=== PATIENT | male | born 1980 ===

== ENCOUNTER 2017-11-16 09:41 | Inpatient (IN) | payer OTHER ==
[2017-11-10 13:42] VITALS: Ht 172.7 cm; Wt 75.0 kg
[2017-11-16] VITALS (8 sets, daily range): BP systolic 124–146; BP diastolic 77–97; PULSE 84–106; TEMP 36.4–37.2; O2SAT 96–98
[~2017-11-16] VITALS: Ht 172.7 cm; Wt 75.0 kg
[~2017-11-16 09:41] MED LIST: CZR50 PO; LACTATED RINGER'S 1000ML 1,000 ML IV SCH
--- NOTE | 2017-11-16 12:02 | History & Physical Bridge Note ---
H&P Re-Evaluation Bridge Note: I have examined the patient, reviewed the History & Physical and in the interval since the performance of the History & Physical I have noted the following changes of clinical significance: No changes noted
[2017-11-16] MEDS ORDERED: BUPIVACAINE LIPOSOME 1/3% 266 MG/20 ML VIAL ONE (12:30)
[2017-11-16] MEDS ORDERED: SODIUM CHLORIDE 0.9% PF 50 ML VIAL ONE (12:30)
[2017-11-16] MEDS ORDERED: BUPIVACAINE 0.25% 30 ML VIAL ONE (12:30)
[2017-11-16] MEDS ORDERED: LIDOCAINE HCL 2% 2 ML VIAL (20MG/ML) ONE (12:47)
[2017-11-16] MEDS ORDERED: PROPOFOL IV EMULSION 10 MG/ML 20 ML VIAL ONE (12:47)
[2017-11-16] MEDS ORDERED: MIDAZOLAM HCL 1 MG/ML 2ML VIAL ONE ×2 (12:47)
[2017-11-16] MEDS ORDERED: FENTANYL CITRATE INJ 50 MCG/1 ML 2 ML VIAL ONE (12:47)
[2017-11-16] MEDS ORDERED: ONDANSETRON INJ 2 MG/ML 2 ML VIAL ONE (12:47)
[2017-11-16] MEDS ORDERED: DEXAMETHASONE SOD INJ 4 MG/ML VIAL ONE (12:47)
[2017-11-16] MEDS ORDERED: NEOSTIGMINE METHYLSULFATE 5 MG/5 ML SYR ONE (12:47)
[2017-11-16] MEDS ORDERED: GLYCOPYRROLATE INJ 0.2 MG/ML VIAL ONE (12:47)
[2017-11-16] MEDS ORDERED: DexMEDEtomidine HCL IV 100 MCG/ML VIAL IV ONE (13:05)
[2017-11-16 13:12] LABS: BASO % 0.3 %; BASO ABS # 0.02 K/uL (0-0.2); EOS % 0.7 %; EOS ABS # 0.04 K/uL (0-0.5); HEMATOCRIT 48.6 % (42-52); HEMOGLOBIN 17.2 g/dL (14.0-18.0); IG# 0.01 K/uL (0.00-0.02); LYMPH % 21.3 %; LYMPH ABS # 1.27 K/uL (1.2-3.4); MEAN CELL VOLUME 85.7 fL (80-100); MEAN CORPUSCULAR HEMOGLOBIN 30.3 pg (25-34); MEAN CORPUSCULAR HGB CONC 35.4 g/dl (32-36); MEAN PLATELET VOLUME 10.4 fL (7.4-10.4); MONO % 13.7 %; MONO ABS # 0.82 K/uL (0.11-0.59); NEUT % 63.8 %; NEUT ABS # 3.81 K/uL (1.4-6.5); PLATELET COUNT 196 K/uL (130-400); RED CELL DISTRIBUTION WIDTH CV 13.6 % (11.5-14.5); RED CELL DISTRIBUTION WIDTH SD 41.9 fL (36.4-46.3); WHITE BLOOD COUNT 5.97 K/uL (4.8-10.8)
[2017-11-16] MEDS ORDERED: ONDANSETRON INJ 2 MG/ML 2 ML VIAL IV PRN ×2 (13:15→15:15)
[2017-11-16] MEDS ORDERED: PROMETHAZINE HCL INJ 6.25 MG in SODIUM CHLORIDE 0.9% 50ML 50 ML IV PRN (13:15)
[2017-11-16] MEDS ORDERED: EpHEDrine SULFATE INJ 50 MG/ML AMP IV PRN (13:15)
[2017-11-16] MEDS ORDERED: ATROPINE SULFATE 0.1 MG/ML 5ML SYR IV PRN (13:15)
[2017-11-16] MEDS ORDERED: FENTANYL CITRATE INJ 50 MCG/1 ML 2 ML VIAL IV PRN (13:15)
[2017-11-16 13:34] LABS: CREATININE 1.14 mg/dl (0.60-1.40); POTASSIUM 3.8 mmol/L (3.5-5.1)
[2017-11-16] MEDS ORDERED: ESMOLOL HCL 10 MG/ML 10 ML VIAL ONE (14:32)
--- NOTE | 2017-11-16 15:02 | [facility] Post Operative Brief Note ---
Immediate Operative Summary Operative Date Nov 16, 2017. Pre-Operative Diagnosis Periaortic mass / paramediastinal mass Post-Operative Diagnosis Same Procedure(s) Performed Robotic Assisted Left Thoracoscopy with Excision of Paramediastinal Mass Surgeon Dr Marcial Respiratory Therapy Instructor Surgeon(s) Jassi Ureña PA-C Estimated Blood Loss 10ml Findings Consistent with Post-Op Diagnosis Specimens Frozen section #1 Left paramediastinal mass sent out at 1451 Anesthesia Type General
[2017-11-16] MEDS ORDERED: MoRPHine SULFATE 2 MG/ML CARP IV PRN (15:15)
[2017-11-16] MEDS ORDERED: OXYCODONE HCL IR 5 MG TAB (IMMEDIATE RELEASE) PO PRN (15:15)
--- NOTE | 2017-11-16 16:17 | DIAGNOSTIC IMAGING REPORT ---
CHEST ONE VIEW PORTABLE HISTORY: 37 years-old Male med. mass excision status post excision of a mediastinal mass. COMPARISON: Chest 10/18/2017 TECHNIQUE: Portable AP view of the chest FINDINGS: Subcutaneous emphysema about the left lateral chest wall and left neck. Chest tube projects over the left lung apex. Trace left apical pneumothorax is noted with pleural separation of approximately 2 mm. No pleural effusion, focal airspace consolidation or overt pulmonary edema. Heart and mediastinal and hilar contours appear to be within normal limits. The bones are grossly intact. IMPRESSION: 1. Left-sided chest tube projects over the left lung apex with trace left apical pneumothorax. 2. Subcutaneous emphysema about the left neck and left lateral chest wall. The above report was generated using voice recognition software. It may contain grammatical, syntax or spelling errors. Electronically signed by: Dwaine Maria M.D. 11/16/2017 4:15 PM Dictated Date/Time: 11/16/2017 4:13 PM
--- NOTE | 2017-11-16 16:32 | Anesthesiology Progress Note ---
Anesthesia Post Op Note Date & Time Nov 16, 2017 at 16:32 Vital Signs Pain Intensity: 0 Vital Signs Past 12 Hours Date Time Temp Pulse Resp B/P (MAP) Pulse Ox O2 Delivery O2 Flow Rate FiO2 11/16/17 16:00 36.7 74 20 143/87 (91) 100 Nasal Cannula 2 11/16/17 15:57 71 14 100 11/16/17 15:57 71 14 11/16/17 15:56 137/90 11/16/17 15:52 75 21 11/16/17 15:52 76 21 100 11/16/17 15:51 138/92 11/16/17 15:48 76 24 11/16/17 15:48 76 24 100 11/16/17 15:46 134/89 11/16/17 15:43 79 15 11/16/17 15:43 79 15 100 11/16/17 15:41 130/92 11/16/17 15:38 75 21 11/16/17 15:38 75 21 100 11/16/17 15:36 134/88 11/16/17 15:34 134/89 11/16/17 15:33 36.2 76 20 134/89 (101) 100 Oxymask 10 11/16/17 15:33 85 100 11/16/17 15:33 85 Notes Mental Status: alert / awake / arousable, participated in evaluation Pt Amnestic to Procedure: Yes Nausea / Vomiting: adequately controlled Pain: adequately controlled Airway Patency, RR, SpO2: stable & adequate BP & HR: stable & adequate Hydration State: stable & adequate Anesthetic Complications: no major complications apparent
--- NOTE | 2017-11-16 16:40 | Progress Note ---
Progress Note Date of Service Nov 16, 2017. Progress Note AIRWAY MANAGEMENT NOTE" CT scan was concerning for airway collapse and mass at the base of tongue. There was also a mediastinal mass, that did not appear to be compressing the trachea, but still left concern that airway compromise could result from a standard anesthetic induction. Decision was made to perform awake fiberoptic intubation. The patient was prepared in the holding area that excellent topical anesthesia of the oropharynx. AFOI was performed easily under light sedation the OR and a 7.5ETT was placed. Glottic opening was noted to have R vocal cord paralysis and deviation of the glottis to the R. He was also noted to be quite anterior with his glottic opening. There was no obvious mass in the posterior oropharynx. After confirmation of ETCO2 and administration of sevoflurane to induce anesthetic, a tube exchanger was placed through the 7.5ETT. We attempted to place a 37F BARBIE over the exchange catheter but were unable to pass the arytenoids under direct laryngoscopy. After failure of this exchange, the 7.5ETT was placed back over the exchange catheter and confirmed in the trachea. After speaking with Dr Marcial, he felt that the procedure could be adequately performed under single leumen tube, and so this tube was secured and the case continued as planned.
[2017-11-16] MEDS ORDERED: METOCLOPRAMIDE HCL INJ 5 MG/ML 2 ML VIAL IV. STA (18:04)
[2017-11-16] MEDS: ACETAMINOPHEN IV 1,000 MG in EMPTY BAG 0 ML IV SCH (19:30)
[2017-11-16] MEDS: D5W AND 1/2NSS 1,000 ML IV SCH (19:31)
[2017-11-16] MEDS: KETOROLAC TROMETHAMINE 15 MG/ML VIAL IV. SCH (19:32)
--- NOTE | 2017-11-16 20:52 | OPERATIVE REPORT ---
DATE OF OPERATION: 11/16/2017 PREOPERATIVE DIAGNOSES: 1. Mass, left paramediastinal area. 2. Left vocal cord paralysis of chronic duration. 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 PROCEDURE: Robot-assisted left thoracoscopy with excision of paramediastinal schwannoma. SURGEON: Denis Marcial MD GUEST REQUEST RUNNER: GILA Ariza (Mr. Niranjan was present for the entire case and was at the patient's bedside while I was at the console). ANESTHESIA: General anesthesia with a single lumen intubation. INDICATIONS OF PROCEDURE: Randy Curtis is a 37-year-old male who was incarcerated and who was found to have vocal cord paralysis. He underwent a workup, and a CT scan was obtained, and it was quite concerning because it appeared that he had not only a mass in his left upper paramediastinal area between his subclavian and carotid arteries but also he had a mass in his liver, and also, there was a questionable subglottic abnormality. He underwent a workup by Dr. Marie who referred him to me. The mass in the dome of the diaphragm is probably a hemangioma, and I reviewed this with the radiologist. In addition, the patient did have a left paralyzed vocal cord; however, after reviewing this, I felt we were probably dealing with a schwannoma. After a long discussion, we elected to proceed with excision. DESCRIPTION OF PROCEDURE: On 11/16/2017, the patient was brought to the operating room and underwent an uncomplicated robot-assisted thoracoscopic excision of this mass. We dissected this out very nicely. It was definitely arising and in fact was incorporated into the vagus nerve. There was no way to dissect this out. I left the capsule intact, although I was able to dissect it out precisely using the robot. I divided the vagus nerve fairly far down below the arch and then also divided it fairly high up. I pulled it down and cut and then retracted superiorly, then I cut it proximally and inferiorly, and I cut it distally. The mass was handed off the field in an Endobag. He tolerated it well. Patient was brought to the operating room, placed in supine position. General anesthesia induced. Endotracheal intubation was performed. Some difficulty intubating him as he was quite anterior. There was also a question about a subglottic abnormality. Dr. Flores performed a fiberoptic awake intubation; however, could do to hold anterior, we elected to proceed with a single lumen tube. The patient was placed in right lateral decubitus position. Left chest prepped and draped in the usual sterile fashion. After appropriate timeout had been called and antibiotics given, I made 4 separate incisions. I made a 12 mm incision right about the axillary line seventh interspace and placed the trocar. The camera was then placed. Carbon dioxide was infused. We had excellent visualization. An 8 mm tube was placed in seventh interspace more posteriorly and another 8 mm tube placed more anteriorly. I also placed a 12 mm tube and assistance port at about the tenth interspace about the midaxillary line. We were then able to see the mass. Grasping it with a grasper, I used a bipolar [place] dissector and I was able to separate this quite easily. We off the subclavian artery and then we identified the left carotid artery. We then dissected out and this came out quite nicely, it was an encapsulated; however, it was arising directly from the nerve. The vocal cords were already paralyzed, and it had been documented to be paralyzed for at least 6 months. I went ahead and divided this. We pulled it down, cut it, and let it retract back up into the thoracic inlet. I also placed it distally, cut it, and allowed it to retract distally inferior to the arch going down along the paraesophageal area. This came out quite nicely. We were able to remove the entire encapsulated mass. We had really got into no bleeding. We used an Endobag, collected this mass, and delivered it through the patient assistant's port. At the beginning of the case, we had anesthetized each of the 4 port sites with Exparel. We mixed 266 mg with 30 mL of 0.25% Marcaine and 250 mL normal saline, injected each of the ports and then did an intercostal block from the 2nd to the 11th rib. We really got into no bleeding with this case. A 24-Wallisian chest tube was placed through the patient assistant's port and directed toward the apex, sutured in place with heavy silk suture. The camera port was closed with a 0 Vicryl to close the muscle layers. 4-0 Monocryl was used in running subcuticular fashion to approximate the wound edges of all. He tolerated it very nicely and was extubated in the room. The frozen section was reviewed and this was a schwannoma and the capsule was intact. I attest to the content of the Intraoperative Record and any orders documented therein. Any exception s are noted below.
[2017-11-16] MEDS: DOCUSATE SODIUM 100 MG CAP PO SCH (21:00)
[2017-11-16] MEDS: METOCLOPRAMIDE HCL INJ 5 MG/ML 2 ML VIAL IV. SCH (23:42)
[2017-11-17 00:34] VITALS: BP 123/83; PULSE 107; TEMP 36.8; O2SAT 98
[2017-11-17 02:32] VITALS: BP 132/83; PULSE 101; TEMP 37; O2SAT 98
[2017-11-17 04:30] VITALS: BP 145/82; PULSE 98; TEMP 37; O2SAT 98
[2017-11-17] MEDS: ACETAMINOPHEN IV 1,000 MG in EMPTY BAG 0 ML IV SCH (04:34)
[2017-11-17] MEDS: KETOROLAC TROMETHAMINE 15 MG/ML VIAL IV. SCH (04:34)
[2017-11-17] MEDS: D5W AND 1/2NSS 1,000 ML IV SCH (04:38)
[2017-11-17] MEDS ORDERED: TYLOTC325 PO (08:12)
[2017-11-17] MEDS ORDERED: CLC100 PO (08:12)
--- NOTE | 2017-11-17 08:16 | Discharge Instructions ---
Discharge Instructions Date of Service Nov 17, 2017. Admission Reason for Admission: Left Paramediastinal Mass, Liver Mass Discharge Discharge Diagnosis / Problem: Schwannoma Discharge Goals Goal(s): Learn about illness Activity Recommendations Activity Limitations: as noted below Lifting Limitations: none Shower/Bathe: may shower/bathe in 3 days 1. Dressing may be removed on November 20, 2017 and patient may shower thereafter. No tub baths. 2. Patient should not fly in airplane until cleared to do so by Dr. Marcial. . Instructions / Follow-Up Instructions / Follow-Up 1. Patient may be placed in general population if cleared by [facility] medical staff. 2. Office appointment with Dr. Marcial in 1 month. Office will call to set up time and date. Patient should go to hospital 1 hour before scheduled appointment to have a chest x-ray taken. Current Hospital Diet Patient's current hospital diet: Regular Diet Discharge Diet Recommended Diet: Regular Diet Procedures Procedures Performed: Robotic Assisted Left Thoracoscopy with Excision of Paramediastinal Mass Pending Studies Studies pending at discharge: no Medical Emergencies . Who to Call and When: Medical Emergencies: If at any time you feel your situation is an emergency, please call 911 immediately. . Non-Emergent Contact Non-Emergency issues call your: Surgeon Call Non-Emergent contact if: you have a fever, your pain is not controlled, wound has increased drainage . "Provider Documentation" section prepared by Vineet Ureña. .
[2017-11-17 08:25] VITALS: BP 144/92; PULSE 99; TEMP 36.8; O2SAT 97
[2017-11-17] MEDS ORDERED: ACETAMINOPHEN 325 MG TAB PO SCH (08:30)
[2017-11-17] MEDS: DOCUSATE SODIUM 100 MG CAP PO SCH (08:38)
[2017-11-17] MEDS: METOCLOPRAMIDE HCL INJ 5 MG/ML 2 ML VIAL IV. SCH (08:40)
[2017-11-17] MEDS ORDERED: ENOXAPARIN 40 MG/0.4 ML SYR SQ SCH (09:00)
[2017-11-17] MEDS ORDERED: LOSARTAN POTASSIUM 50 MG TAB PO SCH (09:00)
--- NOTE | 2017-11-17 09:03 | DIAGNOSTIC IMAGING REPORT ---
CHEST ONE VIEW PORTABLE HISTORY: 37 years-old Male med. mass excision follow-up study in a patient with recent mediastinal mass excision COMPARISON: Chest radiograph 11/16/2017, CT chest 10/18/2017 TECHNIQUE: Portable AP view of the chest FINDINGS: Left-sided chest tube projects over the medial left upper lung. Subcutaneous emphysema about the left neck and lateral left chest wall redemonstrated. Previously noted tiny left apical pneumothorax is not clearly seen on today's study. Cardiac silhouette is within normal limits. No pleural effusion, overt pulmonary edema or focal airspace consolidation. Bones of the chest appear grossly intact. IMPRESSION: 1. Left-sided chest tube projects over the left upper lung. Previously noted tiny left sided pneumothorax is no longer identified. 2. Subcutaneous emphysema about the left neck and left lateral chest wall. The above report was generated using voice recognition software. It may contain grammatical, syntax or spelling errors. Electronically signed by: Dwaine Maria M.D. 11/17/2017 7:19 AM Dictated Date/Time: 11/17/2017 7:17 AM
--- NOTE | 2017-11-17 09:04 | DIAGNOSTIC IMAGING REPORT ---
CHEST ONE VIEW PORTABLE CLINICAL HISTORY: tube removal dyspnea COMPARISON STUDY: 11/17/2017 FINDINGS: Interval removal of left-sided chest tube. Left lung is considered clear. No evidence pneumothorax. Trace amount of residual subcutaneous emphysematous change. IMPRESSION: No significant pneumothorax post left-sided chest tube removal The above report was generated using voice recognition software. It may contain grammatical, syntax or spelling errors. Electronically signed by: Prabhakar Kee M.D. 11/17/2017 8:31 AM Dictated Date/Time: 11/17/2017 8:30 AM
--- NOTE | 2017-11-17 09:44 | Anesthesiology Progress Note ---
Anesthesia Post Op Note Date & Time Nov 17, 2017 at 09:43 Vital Signs Vital Signs Past 12 Hours Date Time Temp Pulse Resp B/P (MAP) Pulse Ox O2 Delivery O2 Flow Rate FiO2 11/17/17 08:25 36.8 99 16 144/92 (109) 97 Room Air 11/17/17 04:30 37.0 98 16 145/82 (103) 98 Room Air 11/17/17 02:32 37.0 101 16 132/83 (99) 98 Room Air 11/17/17 00:34 36.8 107 16 123/83 (96) 98 Room Air 11/16/17 23:45 Room Air 11/16/17 23:30 37.1 88 16 124/79 (94) 97 Room Air 11/16/17 22:28 37.2 92 16 130/77 (94) 98 Room Air Notes Mental Status: alert / awake / arousable, participated in evaluation Pt Amnestic to Procedure: Yes Nausea / Vomiting: adequately controlled Pain: adequately controlled Airway Patency, RR, SpO2: stable & adequate BP & HR: stable & adequate Hydration State: stable & adequate Anesthetic Complications: no major complications apparent
[2017-11-17 09:53] VITALS: BP 144/92; PULSE 99; TEMP 36.8; O2SAT 97
--- NOTE | 2017-11-17 17:31 | DISCHARGE SUMMARY ---
DISCHARGE DIAGNOSIS: Schwannoma involving left vagus nerve in the supra-aortic position. HOSPITAL COURSE: This is a 37-year-old inmate who was found to have vocal cord paralysis back in 2017. This was on the left side. He underwent a workup and was found to have a mass in his left superior mediastinum. There was also a questionable mass in his throat; however, Dr. Marie evaluated him and felt that the mass in his left superior mediastinal area medially was of more concern. He worked him up and felt that an excision would be warranted. On 11/16/2017 the patient underwent an uncomplicated robot-assisted left thoracoscopic excision of this mass. It was intimately involved with the vagus nerve. I could not dissect this from around and his vocal cord was already paralyzed and had medialized. I went ahead and clipped the vagus nerve proximally and distally. This is a large mass measuring about 4 x 3 cm. Frozen section showed this to be a probable schwannoma. He lost no blood. He looks very good overnight. Pain was very well controlled. His x-ray looked good. I removed his chest tube and discharged him. I will see him back in a month for the final pathology and also to check a chest x-ray. All in all, I was quite pleased.
== END 2017-11-17 10:59 | DRG 42 ==
LOC: C.ACU 09:41 → C.MSW 15:14 → ENRESERV 17:10
PROVIDERS: ADMIT Surgery; ATTEND Surgery
PROC: 8E0W4CZ Robotic Assisted Procedure of Trunk Region, Percutaneous Endoscopic Approach (ICD-10-PCS; principal; 2017-11-16 12:00)
PROC: 00B Central Nervous System and Cranial Nerves, Excision (ICD-10-PCS; principal; 2017-11-16 12:00)
DX: D33.3 Benign neoplasm of cranial nerves (principal); J38.01 Paralysis of vocal cords and larynx, unilateral